=== PATIENT | male | born 1995 | race Hispanic/Latino ===

== ENCOUNTER 2019-10-20 11:43 | Emergency (ER) | payer OTHER ==
[~2019-10-20] VITALS: Ht 180.3 cm; Wt 111.0 kg
[2019-10-20 11:44] VITALS: BP 134/83
[2019-10-20] MEDS ORDERED: DERMABOND TOPICAL SKIN ADHESIVE TOP ONE (12:30)
== END 2019-10-20 12:54 | disposition home or self-care (01) ==
LOC: M ED 11:43
DX: S61.210A Laceration without foreign body of right index finger without damage to nail, initial encounter (principal); W26.0XXA Contact with knife, initial encounter; Y92.89 Other specified places as the place of occurrence of the external cause; Y99.1 Military activity